=== PATIENT | male | born 1985 | race Asian ===

== ENCOUNTER 2020-09-19 10:39 | Emergency (ER) | payer OTHER ==
[2020-09-19 10:55] VITALS: BP 128/68
[2020-09-19] MEDS ORDERED: DICLOFENAC35 MG (10:57)
[2020-09-19] MEDS ORDERED: PROZAC10 M2 (10:57)
== END 2020-09-19 11:55 | disposition home or self-care (01) ==
LOC: ED 10:39
DX: S29.9XXA Unspecified injury of thorax, initial encounter (principal); W18.30XA Fall on same level, unspecified, initial encounter; Y93.75 Activity, martial arts